=== PATIENT | female | born 1940 | race Caucasian/White ===

== ENCOUNTER 2022-09-17 22:00 | Inpatient (IN) | payer OTHER, BC ==
[2022-09-17] MEDS ORDERED: ACETAMINOPHEN 325 MG TABLET (FP) PO PRN (22:47)
[2022-09-18] MEDS ORDERED: DOCUSATE SODIUM 100 MG CAPSULE (FP) PO ONE (02:05)
[2022-09-18] MEDS ORDERED: PANTOPRAZOLE 40 MG TABLET PO ONE (02:05)
[2022-09-18] MEDS ORDERED: ENOXAPARIN NA (PORCINE) 40 MG/0.4 ML DISP.SYRIN SQ ONE ×2 (02:05→10:32)
[2022-09-18] MEDS: PANTOPRAZOLE 40 MG TABLET PO SCH ×2 (02:20→10:30)
[2022-09-18] MEDS: ENOXAPARIN NA (PORCINE) 40 MG/0.4 ML DISP.SYRIN SQ SCH ×2 (02:20→10:38)
[2022-09-18] MEDS: DOCUSATE SODIUM 100 MG CAPSULE (FP) PO SCH ×2 (02:27→21:33)
[2022-09-18] MEDS: POLYETHYLENE GLYCOL (HEALTHYLAX) 3350 17 GM PACKET PO SCH ×3 (02:47→21:33)
[2022-09-18] MEDS ORDERED: D5-1/2NS+10 MEQ KCL - 10 MEQ/1,000 ML INFUS.BAG IV SCH ×2 (06:45→14:20)
[2022-09-18] MEDS ORDERED: METOPROLOL TARTRATE 5 MG/5 ML VIAL IVPUSH PRN (06:48)
[2022-09-18] MEDS ORDERED: METOPROLOL TARTRATE 5 MG/5 ML VIAL ONE (09:56)
[2022-09-18] MEDS: METOPROLOL TARTRATE 5 MG/5 ML VIAL IVPB PRN (23:17)
[2022-09-19] MEDS: METOPROLOL TARTRATE 5 MG/5 ML VIAL IVPB PRN (05:58)
[2022-09-19] MEDS: D5-1/2NS+10 MEQ KCL - 10 MEQ/1,000 ML INFUS.BAG IV SCH ×2 (06:34→21:07)
[2022-09-19 08:09] LABS: BASO % 0.6 % (0-2.0); EOS % 0.1 % (0-4.5); HEMATOCRIT 46.2 % (32.4-45.2); HEMOGLOBIN 15.7 GM/dL (10.7-15.3); LYMPH % 7.1 % (8-40); MCH 28.5 pg (25.7-33.7); MEAN CELL VOLUME 83.9 fl (80-96); MEAN PLT VOLUME 7.9 fl (7.5-11.1); NEUT % 88.2 % (42.8-82.8); PLATELET COUNT 329 10^3/uL (134-434); RDW 14.1 % (11.6-15.6); WHITE BLOOD COUNT 14.3 K/mm3 (4.0-10.0)
[2022-09-19 08:33] LABS: BLOOD UREA NITROGEN 7.6 mg/dL (7-18)
[2022-09-19 08:36] LABS: CREATININE 0.4 mg/dL (0.55-1.3)
[2022-09-19] MEDS: LOSARTAN 50MG/HCTZ 12.5MG 1 TAB PO ONE ×2 (09:07→09:08)
[2022-09-19] MEDS: BETHANECHOL CHLORIDE 25 MG TABLET PO SCH ×3 (09:08→22:22)
[2022-09-19] MEDS: PANTOPRAZOLE 40 MG TABLET PO SCH (09:10)
[2022-09-19] MEDS: ENOXAPARIN NA (PORCINE) 40 MG/0.4 ML DISP.SYRIN SQ SCH (09:10)
[2022-09-19] MEDS: POLYETHYLENE GLYCOL (HEALTHYLAX) 3350 17 GM PACKET PO SCH ×2 (09:10→22:22)
[2022-09-19 12:36] LABS: EPI CELLS 9 /uL (0-25.1); HYALINE CASTS 0 /uL (0-3.1); URINE APPEARANCE CLEAR; URINE BACTERIA 969 /uL (0-1359); URINE BILIRUBIN NEGATIVE (NEGATIVE); URINE COLOR YELLOW; URINE GLUCOSE (UA) NEGATIVE (NEGATIVE); URINE KETONE NEGATIVE (NEGATIVE); URINE LEUK ESTERASE TRACE (NEGATIVE); URINE NITRITE NEGATIVE (NEGATIVE); URINE PROTEIN NEGATIVE (NEGATIVE); URINE RBC 51 /uL (0-23.9); URINE WBC 19 /uL (0-25.8)
[2022-09-19 14:31] VITALS: BMI 17.5
[2022-09-19] MEDS: LOSARTAN 50MG/HCTZ 12.5MG 1 TAB PO SCH (22:21)
[2022-09-19] MEDS: DOCUSATE SODIUM 100 MG CAPSULE (FP) PO SCH ×2 (22:22→22:35)
[2022-09-20] MEDS: BETHANECHOL CHLORIDE 25 MG TABLET PO SCH ×3 (05:37→21:31)
[2022-09-20 07:41] LABS: HEMATOCRIT 42.4 % (32.4-45.2); HEMOGLOBIN 14.7 GM/dL (10.7-15.3); MCH 29.1 pg (25.7-33.7); MCHC 34.8 g/dl (32.0-36.0); MEAN CELL VOLUME 83.6 fl (80-96); MEAN PLT VOLUME 7.5 fl (7.5-11.1); PLATELET COUNT 311 10^3/uL (134-434); RBC 5.07 M/mm3 (3.60-5.2); RDW 13.8 % (11.6-15.6); WHITE BLOOD COUNT 21.8 K/mm3 (4.0-10.0)
[2022-09-20] MEDS ORDERED: LOSARTAN 50MG/HCTZ 12.5MG 1 TAB PO SCH (10:00)
[2022-09-20 10:01] LABS: ANISOCYTOSIS 1+; MACROCYTOSIS 0
[2022-09-20] MEDS: ENOXAPARIN NA (PORCINE) 40 MG/0.4 ML DISP.SYRIN SQ SCH (10:06)
[2022-09-20] MEDS: POLYETHYLENE GLYCOL (HEALTHYLAX) 3350 17 GM PACKET PO SCH ×2 (10:07→21:31)
[2022-09-20] MEDS: PANTOPRAZOLE 40 MG TABLET PO SCH (10:07)
[2022-09-20] MEDS: MULTIVITAMINS (DAILY MVI) TABLET (FP) PO SCH (10:07)
[2022-09-20] MEDS: LOSARTAN 50MG/HCTZ 12.5MG 1 TAB PO SCH (10:07)
[2022-09-20] MEDS: D5-1/2NS+10 MEQ KCL - 10 MEQ/1,000 ML INFUS.BAG IV SCH (10:07)
[2022-09-20] MEDS ORDERED: D5-1/2NS+10 MEQ KCL - 10 MEQ/1,000 ML INFUS.BAG IV SCH ×2 (13:17→18:52)
[2022-09-20] MEDS: guaiFENesin 600 MG TABLET.ER (FP) PO SCH ×2 (13:58→21:30)
[2022-09-20] MEDS: LOSARTAN POTASSIUM 50 MG TABLET PO SCH ×2 (13:58→21:30)
[2022-09-20] MEDS: CEFTRIAXONE 2 GM in DEXTROSE 5%-WATER 100 ML IVPB SCH (16:52)
[2022-09-20] MEDS: DOCUSATE SODIUM 100 MG CAPSULE (FP) PO SCH (21:30)
[2022-09-21] MEDS: BETHANECHOL CHLORIDE 25 MG TABLET PO SCH ×2 (06:08→13:08)
[2022-09-21] MEDS ORDERED: D5-1/2NS+10 MEQ KCL - 10 MEQ/1,000 ML INFUS.BAG IV SCH ×2 (06:19→17:45)
[2022-09-21 08:36] LABS: HEMATOCRIT 41.5 % (32.4-45.2); HEMOGLOBIN 14.4 GM/dL (10.7-15.3); MCHC 34.6 g/dl (32.0-36.0); MEAN CELL VOLUME 83.8 fl (80-96); MEAN PLT VOLUME 8.4 fl (7.5-11.1); PLATELET COUNT 293 10^3/uL (134-434); RBC 4.95 M/mm3 (3.60-5.2); WHITE BLOOD COUNT 16.6 K/mm3 (4.0-10.0)
[2022-09-21 08:46] LABS: ALBUMIN 3.2 g/dl (3.4-5.0); BLOOD UREA NITROGEN 20.1 mg/dL (7-18); CALCIUM 8.8 mg/dL (8.5-10.1)
[2022-09-21 08:49] LABS: CREATININE 0.5 mg/dL (0.55-1.3)
[2022-09-21 08:51] LABS: TOT PROT 6.7 g/dl (6.4-8.2)
[2022-09-21] MEDS: LOSARTAN POTASSIUM 50 MG TABLET PO SCH (09:03)
[2022-09-21] MEDS: guaiFENesin 600 MG TABLET.ER (FP) PO SCH (09:03)
[2022-09-21] MEDS: POLYETHYLENE GLYCOL (HEALTHYLAX) 3350 17 GM PACKET PO SCH (09:03)
[2022-09-21] MEDS: PANTOPRAZOLE 40 MG TABLET PO SCH (09:03)
[2022-09-21] MEDS: MULTIVITAMINS (DAILY MVI) TABLET (FP) PO SCH (09:03)
[2022-09-21] MEDS: CEFTRIAXONE 2 GM in DEXTROSE 5%-WATER 100 ML IVPB SCH (09:03)
[2022-09-21] MEDS: ENOXAPARIN NA (PORCINE) 40 MG/0.4 ML DISP.SYRIN SQ SCH (09:04)
[2022-09-21 10:35] LABS: ANISOCYTOSIS 0; MACROCYTOSIS 0
[2022-09-21 11:18] LABS: MAGNESIUM 2.1 mg/dL (1.8-2.4)
[2022-09-21] MEDS ORDERED: ALBUTEROL SO4 0.042% IH SOL 1.25 MG/3 ML VIAL.NEB NEB SCH ×2 (14:00→20:00)
[2022-09-21] MEDS ORDERED: methylPREDNISolone NA SUCC 40 MG/1 ML VIAL IVPUSH ONE (14:32)
[2022-09-21 15:04] LABS: ARTERIAL BLD GAS O2 SATURATION 91.4 % (95-98); ARTERIAL BLOOD GAS BASE EXCESS 4.9 mmol/L (-2-2); ARTERIAL BLOOD GAS PO2 57.9 mmHg (80-100); ARTERIAL BLOOD GAS pH 7.458 (7.350-7.450)
[2022-09-21 15:07] LABS: ALLENS TEST POSITIVE
[2022-09-21] MEDS ORDERED: ACETAMINOPHEN 325 MG TABLET (FP) PO PRN (16:13)
[2022-09-21] MEDS ORDERED: ACETAMINOPHEN 1000 MG/100 ML BAG IVPB PRN (17:27)
[2022-09-21] MEDS ORDERED: PANTOPRAZOLE SODIUM 40 MG VIAL IVPUSH ONE (17:31)
[2022-09-21] MEDS ORDERED: ALBUTEROL SO4 0.042% IH SOL 1.25 MG/3 ML VIAL.NEB NEB PRN (17:34)
[2022-09-21] MEDS ORDERED: METOPROLOL TARTRATE 5 MG/5 ML VIAL IVPUSH PRN (17:37)
[2022-09-21] MEDS ORDERED: PIPERACILLIN/TAZOB 3.375 GM 3.375 GM in DEXTROSE 5%-WATER - 50 ML IVPB SCH (18:00)
[2022-09-21] MEDS ORDERED: PIPERACILLIN/TAZOB 4.5 GM 4.5 GM in DEXTROSE 5%-WATER 100 ML IVPB SCH (21:00)
[2022-09-21] MEDS ORDERED: LOSARTAN POTASSIUM 50 MG TABLET PO SCH (22:00)
[2022-09-21] MEDS ORDERED: BETHANECHOL CHLORIDE 25 MG TABLET PO SCH (22:00)
[2022-09-21] MEDS ORDERED: DOXYCYCLINE INJECTION 100 MG in DEXTROSE 5%-WATER 100 ML IVPB SCH (22:00)
[2022-09-21] MEDS ORDERED: guaiFENesin 600 MG TABLET.ER (FP) PO SCH (22:00)
[2022-09-22] MEDS: PIPERACILLIN/TAZOB 3.375 GM 3.375 GM in DEXTROSE 5%-WATER - 50 ML IVPB SCH ×3 (03:02→17:00)
[2022-09-22] MEDS ORDERED: D5-1/2NS+10 MEQ KCL - 10 MEQ/1,000 ML INFUS.BAG IV SCH (06:03)
[2022-09-22 07:52] LABS: HEMATOCRIT 39.7 % (32.4-45.2); MCHC 35.2 g/dl (32.0-36.0); MEAN CELL VOLUME 82.5 fl (80-96); MEAN PLT VOLUME 8.3 fl (7.5-11.1); PLATELET COUNT 287 10^3/uL (134-434); RBC 4.81 M/mm3 (3.60-5.2); RDW 13.5 % (11.6-15.6); WHITE BLOOD COUNT 8.8 K/mm3 (4.0-10.0)
[2022-09-22 07:58] LABS: BLOOD UREA NITROGEN 18.6 mg/dL (7-18); CALCIUM 8.2 mg/dL (8.5-10.1)
[2022-09-22 08:02] LABS: CREATININE 0.4 mg/dL (0.55-1.3)
[2022-09-22 09:40] LABS: ANISOCYTOSIS 2+; MACROCYTOSIS 0
[2022-09-22] MEDS: ENOXAPARIN NA (PORCINE) 40 MG/0.4 ML DISP.SYRIN SQ SCH (09:49)
[2022-09-22] MEDS: PANTOPRAZOLE SODIUM 40 MG VIAL IVPUSH SCH (09:50)
[2022-09-22] MEDS ORDERED: PANTOPRAZOLE 40 MG TABLET PO SCH (10:00)
[2022-09-22] MEDS ORDERED: MULTIVITAMINS (DAILY MVI) TABLET (FP) PO SCH (10:00)
[2022-09-22] MEDS ORDERED: AMINO ACIDS 4.25%/D5W 1,000 ML IV SCH (10:45)
[2022-09-22] MEDS ORDERED: POTASSIUM CHLORIDE 10 MEQ in AMINO ACIDS 4.25%/D5W 1,000 ML IV SCH ×2 (11:30→17:26)
[2022-09-22] MEDS: FAT EMULSION/OLIVE/SOY/PHOSPHO 250 ML IV SCH (21:24)
[2022-09-22] MEDS ORDERED: FAT EMULSIONS 20% 250 ML PREMIX INFUS.BAG IV SCH (22:00)
[2022-09-23] MEDS: PIPERACILLIN/TAZOB 3.375 GM 3.375 GM in DEXTROSE 5%-WATER - 50 ML IVPB SCH ×3 (03:31→17:25)
[2022-09-23 07:54] LABS: BASO % 0.1 % (0-2.0); HEMATOCRIT 39.2 % (32.4-45.2); LYMPH % 3.5 % (8-40); MCH 29.5 pg (25.7-33.7); MCHC 35.6 g/dl (32.0-36.0); MEAN CELL VOLUME 82.7 fl (80-96); MEAN PLT VOLUME 7.8 fl (7.5-11.1); MONO % 4.9 % (3.8-10.2); NEUT % 91.5 % (42.8-82.8); PLATELET COUNT 331 10^3/uL (134-434); RBC 4.74 M/mm3 (3.60-5.2); RDW 13.6 % (11.6-15.6); WHITE BLOOD COUNT 10.7 K/mm3 (4.0-10.0)
[2022-09-23 08:20] LABS: BLOOD UREA NITROGEN 19.7 mg/dL (7-18); CREATININE 0.4 mg/dL (0.55-1.3)
[2022-09-23 09:04] LABS: ANISOCYTOSIS 0; HELMET CELLS 0; HOWELL-JOLLY BODIES 0; MACROCYTOSIS 0; OVALOCYTE 0; ROULEAU 0; SICKELED CELLS 0; TARGET CELLS 0; TEAR DROP CELLS 0; TOXIC GRANULATION 0
[2022-09-23] MEDS: PANTOPRAZOLE SODIUM 40 MG VIAL IVPUSH SCH (09:34)
[2022-09-23] MEDS: ENOXAPARIN NA (PORCINE) 40 MG/0.4 ML DISP.SYRIN SQ SCH (09:34)
[2022-09-23] MEDS: POTASSIUM CHLORIDE 10 MEQ in AMINO ACIDS 4.25%/D5W 1,000 ML IV SCH (13:30)
[2022-09-23] MEDS: FAT EMULSION/OLIVE/SOY/PHOSPHO 250 ML IV SCH (21:44)
[2022-09-24] MEDS: PIPERACILLIN/TAZOB 3.375 GM 3.375 GM in DEXTROSE 5%-WATER - 50 ML IVPB SCH ×3 (02:21→17:05)
[2022-09-24 08:02] LABS: HEMATOCRIT 37.8 % (32.4-45.2); HEMOGLOBIN 13.6 GM/dL (10.7-15.3); MCH 29.9 pg (25.7-33.7); MEAN PLT VOLUME 8.1 fl (7.5-11.1); PLATELET COUNT 370 10^3/uL (134-434); RBC 4.56 M/mm3 (3.60-5.2); RDW 13.6 % (11.6-15.6); WHITE BLOOD COUNT 10.8 K/mm3 (4.0-10.0)
[2022-09-24 08:23] LABS: CALCIUM 8.4 mg/dL (8.5-10.1)
[2022-09-24 08:24] LABS: BLOOD UREA NITROGEN 17.1 mg/dL (7-18)
[2022-09-24 08:27] LABS: CREATININE 0.3 mg/dL (0.55-1.3)
[2022-09-24] MEDS: PANTOPRAZOLE SODIUM 40 MG VIAL IVPUSH SCH (09:24)
[2022-09-24] MEDS: ENOXAPARIN NA (PORCINE) 40 MG/0.4 ML DISP.SYRIN SQ SCH (09:24)
[2022-09-24 10:20] LABS: ANISOCYTOSIS 0; HELMET CELLS 0; HOWELL-JOLLY BODIES 0; MACROCYTOSIS 0; OVALOCYTE 0; ROULEAU 0; SICKELED CELLS 0; TARGET CELLS 0; TEAR DROP CELLS 0; TOXIC GRANULATION 0
[2022-09-24] MEDS ORDERED: morphine SULFATE 4 MG/ML VIAL IVPUSH PRN (12:08)
[2022-09-24] MEDS: POTASSIUM CHLORIDE 10 MEQ in AMINO ACIDS 4.25%/D5W 1,000 ML IV SCH (12:11)
[2022-09-24] MEDS: FAT EMULSION/OLIVE/SOY/PHOSPHO 250 ML IV SCH (21:07)
[2022-09-25] MEDS: PIPERACILLIN/TAZOB 3.375 GM 3.375 GM in DEXTROSE 5%-WATER - 50 ML IVPB SCH ×2 (03:06→10:03)
[2022-09-25 07:31] LABS: HEMATOCRIT 37.6 % (32.4-45.2); HEMOGLOBIN 13.5 GM/dL (10.7-15.3); MCH 29.4 pg (25.7-33.7); MCHC 35.9 g/dl (32.0-36.0); MEAN CELL VOLUME 81.9 fl (80-96); MEAN PLT VOLUME 7.8 fl (7.5-11.1); PLATELET COUNT 396 10^3/uL (134-434); RBC 4.59 M/mm3 (3.60-5.2); RDW 13.6 % (11.6-15.6); WHITE BLOOD COUNT 12.6 K/mm3 (4.0-10.0)
[2022-09-25 07:59] LABS: BLOOD UREA NITROGEN 19.1 mg/dL (7-18); CALCIUM 8.3 mg/dL (8.5-10.1)
[2022-09-25 08:02] LABS: CREATININE 0.3 mg/dL (0.55-1.3)
[2022-09-25 08:04] LABS: BILIRUBIN,TOTAL 0.4 mg/dL (0.2-1); TOT PROT 6.2 g/dl (6.4-8.2)
[2022-09-25 08:33] LABS: ALBUMIN 2.3 g/dl (3.4-5.0)
[2022-09-25 10:00] LABS: ANISOCYTOSIS 0; MACROCYTOSIS 0
[2022-09-25] MEDS: ENOXAPARIN NA (PORCINE) 40 MG/0.4 ML DISP.SYRIN SQ SCH (10:03)
[2022-09-25] MEDS: PANTOPRAZOLE SODIUM 40 MG VIAL IVPUSH SCH (10:05)
[2022-09-25] MEDS: POTASSIUM CHLORIDE 10 MEQ in AMINO ACIDS 4.25%/D5W 1,000 ML IV SCH (11:26)
[2022-09-25] MEDS ORDERED: MORPHINE SULFATE/0.9% NACL/PF 100 MG/100 ML BAG IVPB SCH (15:50)
[2022-09-25] MEDS ORDERED: PIPERACILLIN/TAZOB 3.375 GM 3.375 GM in DEXTROSE 5%-WATER - 50 ML IVPB SCH (18:00)
[2022-09-25] MEDS ORDERED: FAT EMULSION/OLIVE/SOY/PHOSPHO 250 ML IV SCH (22:00)
[2022-09-26] MEDS ORDERED: MORPHINE SULFATE/0.9% NACL/PF 100 MG/100 ML BAG IVPB SCH (05:35)
[2022-09-26] MEDS ORDERED: POTASSIUM CHLORIDE 10 MEQ in AMINO ACIDS 4.25%/D5W 1,000 ML IV SCH (05:40)
[2022-09-26 07:15] VITALS: BP 96/43; PULSE 80; RESP 21; TEMP 97.4
== END 2022-09-26 08:45 | disposition expired | DRG 695 ==
LOC: JER 22:00 → JERBED 22:23 → OBSVTOIN 22:33 → J8W 09-18 18:07 → J4W 09-21 15:16 → J7W 09-25 16:16
PROVIDERS: ADMIT Internal Medicine; ATTEND Internal Medicine
DX: R33.9 Retention of urine, unspecified (principal); E43 Unspecified severe protein-calorie malnutrition; J69.0 Pneumonitis due to inhalation of food and vomit; G93.41 Metabolic encephalopathy; J96.01 Acute respiratory failure with hypoxia; N13.30 Unspecified hydronephrosis; J44.0 Chronic obstructive pulmonary disease with (acute) lower respiratory infection; N13.39 Other hydronephrosis; R64 Cachexia; Z68.1 Body mass index [BMI] 19.9 or less, adult; E87.1 Hypo-osmolality and hyponatremia; R62.7 Adult failure to thrive; K56.41 Fecal impaction; R10.2 Pelvic and perineal pain; M62.81 Muscle weakness (generalized); G30.9 Alzheimer's disease, unspecified; F02.80 Dementia in other diseases classified elsewhere, unspecified severity, without behavioral disturbance, psychotic disturbance, mood disturbance, and anxiety; D72.829 Elevated white blood cell count, unspecified; I10 Essential (primary) hypertension; K86.89 Other specified diseases of pancreas; I46.9 Cardiac arrest, cause unspecified; N39.490 Overflow incontinence; J44.9 Chronic obstructive pulmonary disease, unspecified; R13.12 Dysphagia, oropharyngeal phase; I35.0 Nonrheumatic aortic (valve) stenosis; F32.A Depression, unspecified; R91.8 Other nonspecific abnormal finding of lung field; Z71.89 Other specified counseling
CPT/HCPCS: 0241U-QW; 36415; 36600; 70450-TC; 71045-TC-FY; 71250-TC; 74176-TC; 74177-TC; 74230-TC-FY; 80048; 80053; 81003; 82803; 82962; 83735; 83880; 84100; 84132; 84484; 85025; 85610; 85730; 87040; 87070; 87086; 87186; 87205; 87899; 92611-GN; 93005; 93010; 93306-TC; 94010; 94640; 97116-GP; 97161-GP; 99285-25; C9803-CS; G0378; Q9967; U0003; U0005